=== PATIENT | female | born 1970 | race Caucasian/White ===

== ENCOUNTER → 2017-05-22 | Day surgery (SDC) | payer OTHER ==
[2017-05-18 16:25] VITALS: BMI 25.8
[~2017-05-22] MED LIST: LACTATED RINGERS 1,000 ML IV SCH; LIDOCAINE 1% 20 ML VIAL (10MG/ML) FOR IV START INTRADERMA ONE; LIDOCAINE 1% INJ 10MG/ML (20 ML MDV) ONE; PROPOFOL 10 MG/ML 20 ML VIAL IV ONE
[2017-05-22 09:55] VITALS: RESP 16; TEMP 98.6
--- NOTE | 2017-05-22 10:45 | P.OP ---
Date of Procedure: 05/22/17 Preoperative Diagnosis: GERD Postoperative Diagnosis: Antral gastritis No evidence of hiatal hernia Mild esophagitis Procedure(s) Performed: EGD Anesthesia: MAC Surgeon: Boston Milian Pathology: other (Antrum, esophagus) Condition: stable Disposition: PACU Description of Procedure: The patient's placed on the endoscopy table in the lateral position. She received IV sedation. The gastroscope placed oropharynx passed in the esophagus into the stomach. The scope was then placed through the pylorus. The first and second portion of the duodenum appeared normal. Scope was then brought back the antrum this appeared mildly inflamed. A biopsies performed. The scope was unretroflexed and remainder stomach appeared normal. There was no evidence of a hiatal hernia. The GE junction was at 47 is. The distal esophagus appeared mildly inflamed a biopsies performed. The proximal esophagus appeared normal.
--- NOTE | 2017-05-22 10:46 | P.GSHP ---
History of Present Illness H&P Date: 05/22/17 Chief Complaint: GERD This is a 46-year-old female for from Dr. Jose Sylvester. Patient's equates of GERD. She presents today for EGD. Past Medical History Past Medical History: No Reported History Additional Past Medical History / Comment(s): HX GESTATIONAL DIABETES. C/O DISCOMFORT IN MID CHEST FOR PAST 7 MONTHS. FREQ UTI. History of Any Multi-Drug Resistant Organisms: None Reported Past Surgical History: Hysterectomy Additional Past Surgical History / Comment(s): oopherectomy X2 (2004 & 2012), HYSTERECTOMY IN 1999; D&C Past Anesthesia/Blood Transfusion Reactions: No Reported Reaction Smoking Status: Current every day smoker - Past Family History Father Family Medical History: Cancer Mother Family Medical History: Deep Vein Thrombosis (DVT) Medications and Allergies Home Medications Medication Instructions Recorded Confirmed Type Calcium Carbonate [Tums] 500 - 1,000 mg PO QID PRN 05/18/17 05/22/17 History Cholecalciferol [Vitamin D3] 1,000 unit PO DAILY 05/18/17 05/22/17 History Ibuprofen [Motrin] 600 - 800 mg PO Q6HR PRN 05/18/17 05/22/17 History Allergies Allergy/AdvReac Type Severity Reaction Status Date / Time morphine Allergy Severe Itching Verified 05/22/17 09:55 Surgical - Exam Vital Signs Temp Pulse Resp BP Pulse Ox 98.6 F 70 16 123/82 95 05/22/17 09:54 05/22/17 09:54 05/22/17 09:54 05/22/17 09:54 05/22/17 09:54 - General well developed, no distress - Eyes PERRL - ENT normal pinna - Neck no masses - Cardiovascular Rhythm: regular - Abdomen Abdomen: soft, non tender Assessment and Plan Plan: GERD. We'll perform.
[2017-05-22 13:27] VITALS: BP 130/74; PULSE 70
--- NOTE | 2017-05-22 16:47 | NM ---
EXAMINATION TYPE: NM hepatobiliary w EF DATE OF EXAM: 05/22/2017 COMPARISON: NONE HISTORY: Abdominal pain and GERD per order. Additional symptoms of epigastric pain, heartburn, reflux symptoms, nausea per patient. TECHNIQUE: After the intravenous administration of 5.91 mCi Tc 99m Mebrofenin hepatobiliary scintigra phy is performed. Immediate images post injection. FINDINGS: There is satisfactory initial accumulation of tracer by the liver. The gallbladder is visualized wit hin 60 minutes. The small bowel activity is noted within 20 minutes. At one hour 8 ounces of oral e nsure plus is given to mimic CCK and gallbladder ejection fraction is calculated at 62 %, in the norm al range. Therefore there is no scintigraphic evidence of cystic or common bile duct obstruction to suggest acute cholecystitis or gallbladder dyskinesia. IMPRESSION: Exam is within normal limits.
== END | disposition home or self-care (01) ==
LOC: ORWHC2ENDO 09:01
PROVIDERS: ATTEND Surgery
DX: K29.50 Unspecified chronic gastritis without bleeding (principal); B96.81 Helicobacter pylori [H. pylori] as the cause of diseases classified elsewhere; K21.0 Gastro-esophageal reflux disease with esophagitis; F17.200 Nicotine dependence, unspecified, uncomplicated; Z88.5 Allergy status to narcotic agent
CPT/HCPCS: 88305; 88342; 78226; 43239; A9537; J2001; J2704

== ENCOUNTER → 2022-01-14 | Outpatient (CLI) | payer OTHER ==
--- NOTE | 2022-01-14 13:30 | US ---
EXAMINATION TYPE: US kidneys/renal and bladder DATE OF EXAM: 01/14/2022 COMPARISON: NONE CLINICAL HISTORY: R31.9 HEMATURIA, R10.9 ABDOMINAL PAIN, N39.0 UTI. Pt states multiple UTI's in the l ast 4 years EXAM MEASUREMENTS: Right Kidney: 10.9 x 5.2 x 5.8 cm Left Kidney: 11.5 x 5.5 x 4.7 cm Right Kidney: Appeared wnl, lower pole gassed out Left Kidney: Appeared wnl Bladder: wnl Bilateral Jets seen: Yes There is no evidence for hydronephrosis at this point in time. No nephrolithiasis is seen. No vance s are identified. The urinary bladder is anechoic. Bilateral ureteral jets are seen. IMPRESSION: No discrete abnormality appreciated.
== END | disposition home or self-care (01) ==
LOC: RADUSWWP 12:57
PROVIDERS: ATTEND Internal Medicine
DX: R31.9 Hematuria, unspecified (principal); N39.0 Urinary tract infection, site not specified; R10.9 Unspecified abdominal pain
CPT/HCPCS: 76770

== ENCOUNTER → 2022-06-29 | Outpatient (CLI) | payer OTHER ==
--- NOTE | 2022-06-29 13:44 | XR ---
EXAMINATION TYPE: XR ribs RT DATE OF EXAM: 06/29/2022 COMPARISON: None HISTORY: Blunt trauma TECHNIQUE: 2 view right RIBS FINDINGS: There is a slightly displaced lateral right sixth rib fracture. A subtle nearly nondisplace d fracture of the seventh anterior rib may be present as well. No pneumothorax is identified. IMPRESSION: 1. Right lateral sixth and possibly seventh rib fractures
--- NOTE | 2022-06-29 13:47 | XR ---
EXAMINATION TYPE: XR chest 2V DATE OF EXAM: 06/29/2022 COMPARISON: 09/06/2014 INDICATION: Blunt trauma right ribs TECHNIQUE: Frontal and lateral views of the chest are obtained. FINDINGS: The heart size is normal. The pulmonary vasculature is normal. The lungs are clear. No pneumothorax is evident. Mediastinum is unremarkable. Patient's known right sixth and seventh rib fractures identified chest film. IMPRESSION: 1. No acute pulmonary process.
== END | disposition home or self-care (01) ==
LOC: RADXRMAIN 12:41
PROVIDERS: ATTEND Nurse Practitioner Family
DX: S29.9XXA Unspecified injury of thorax, initial encounter (principal)
CPT/HCPCS: 71046